=== PATIENT | female | born 1980 | race Caucasian/White ===

== ENCOUNTER 2018-04-17 06:21 | Emergency (ER) | payer SELFPAY ==
[~2018-04-17] VITALS: Ht 157.5 cm; Wt 94.3 kg
[2018-04-17] MEDS ORDERED: AMOXICILLIN (07:03)
[2018-04-17] MEDS ORDERED: NORCO (07:03)
[2018-04-17] MEDS ORDERED: Cleocin HCl150 MG PO (08:13)
[2018-04-17] MEDS ORDERED: Zofran Odt4 MG SL (08:13)
== END 2018-04-17 09:46 | disposition home or self-care (01) ==
LOC: ER 06:21
DX: K04.7 Periapical abscess without sinus (principal)
CPT/HCPCS: 96361; 96365; 96375; 99282-25; J2405; J2550; J7030